=== PATIENT | female | born 1970 ===

== ENCOUNTER 2023-03-30 05:21 | Day surgery (SDC) | payer OTHER ==
[~2023-03-30] VITALS: Ht 165.1 cm; Wt 81.6 kg
[~2023-03-30 05:21] MED LIST: COZAAR25 MG PO; SIMVAST PO
== END 2023-03-30 12:15 | disposition home or self-care (01) ==
LOC: CIR.AMB 05:21
PROVIDERS: ATTEND Obstetrics & Gynecology
DX: N95.0 Postmenopausal bleeding (principal); Z20.822 Contact with and (suspected) exposure to COVID-19; I10 Essential (primary) hypertension